=== PATIENT | male | born 1955 | race African-American/Black ===

== ENCOUNTER 2020-11-01 10:40 | Emergency (ER) | payer OTHER ==
[2020-11-01 11:03] VITALS: BMI 27.1
[2020-11-01] MEDS ORDERED: LORazepam 2 MG/ML SDV VIAL IVPUSH ONE (11:33)
[2020-11-01 11:42] LABS: BASO % 0.2 % (0-2.0); HEMATOCRIT 41.4 % (35.4-49); HEMOGLOBIN 13.7 GM/dL (11.7-16.9); LYMPH % 5.1 % (8-40); MCH 33.9 pg (25.7-33.7); MCHC 33.1 g/dl (32.0-35.9); MEAN CELL VOLUME 102.4 fl (80-96); MEAN PLT VOLUME 8.1 fl (7.5-11.1); MONO % 2.3 % (3.8-10.2); NEUT % 92.4 % (42.8-82.8); PLATELET COUNT 244 K/MM3 (134-434); RBC 4.04 M/mm3 (4.00-5.60); RDW 13.3 % (11.9-15.9)
[2020-11-01] MEDS ORDERED: LORazepam 2 MG/ML SDV VIAL ONE (11:42)
[2020-11-01 11:49] LABS: INR 1.02 (0.83-1.09); PROTHROMBIN TIME (PATIENT) 12.3 SEC (9.7-13.0)
[2020-11-01 11:58] LABS: CHLORIDE 106 mmol/L (98-107); POTASSIUM 3.1 mmol/L (3.5-5.1); SODIUM 140 mmol/L (136-145)
[2020-11-01 12:00] LABS: CALCIUM 8.9 mg/dL (8.5-10.1)
[2020-11-01 12:01] LABS: ALBUMIN 4.5 g/dl (3.4-5.0); ANION GAP 9 MMOL/L (8-16); BLOOD UREA NITROGEN 19.5 mg/dL (7-18); CO2 26 mmol/L (21-32); GLUCOSE,RANDOM 135 mg/dL (74-106); MAGNESIUM 1.9 mg/dL (1.8-2.4)
[2020-11-01 12:04] LABS: CREATININE 2.1 mg/dL (0.55-1.3); SGOT/AST 24 U/L (15-37); SGPT/ALT 21 U/L (13-61)
[2020-11-01 12:05] LABS: BILIRUBIN,TOTAL 0.9 mg/dL (0.2-1)
[2020-11-01 12:06] LABS: TOT PROT 8.1 g/dl (6.4-8.2)
[2020-11-01 12:07] LABS: ALK PHOS 131 U/L (45-117)
[2020-11-01 12:10] LABS: N-TERMINAL BNP 3607.6 pg/ml (5-125)
[2020-11-01 12:26] LABS: EPI CELLS 5 /uL (0-25.1); HYALINE CASTS 0 /uL (0-3.1); PH,URINE 6.5 (5.0-8.0); URINE APPEARANCE CLEAR; URINE BACTERIA 128 /uL (0-1359); URINE BILIRUBIN NEGATIVE (NEGATIVE); URINE COLOR YELLOW; URINE GLUCOSE (UA) TRACE (NEGATIVE); URINE KETONE NEGATIVE (NEGATIVE); URINE LEUK ESTERASE NEGATIVE (NEGATIVE); URINE NITRITE NEGATIVE (NEGATIVE); URINE PROTEIN 2+ (NEGATIVE); URINE RBC 48 /uL (0-23.9); URINE UROBILINOGEN 0.2 mg/dL (0.2-1.0); URINE WBC 6 /uL (0-25.8)
[2020-11-01] MEDS ORDERED: NICARDIPINE 25 MG in DEXTROSE 5%-WATER - 240 ML IVPB SCH (12:30)
[2020-11-01 12:33] LABS: OPIATES, URI NEGATIVE ng/ml (CUTOFF=300); PHENCYCLIDINE,URINE NEGATIVE ng/ml (CUTOFF=25)
[2020-11-01 12:34] LABS: COCAINE, UR NEGATIVE ng/ml (CUTOFF=300); METHADONE, UR NEGATIVE ng/ml (CUTOFF=300); URINE BARBITURATES NEGATIVE ng/ml (CUTOFF=200)
[2020-11-01 12:40] LABS: URINE AMPHETAMINES NEGATIVE ng/ml (CUTOFF=500); URINE BENZODIAZEPINES NEGATIVE ng/ml (CUTOFF=200)
[2020-11-01] MEDS ORDERED: niCARdipine HCL 25 MG/10 ML AMPUL IVPB ONE ×2 (12:42→15:08)
[2020-11-01 12:52] LABS: ANISOCYTOSIS 1+; MACROCYTOSIS 0; OVALOCYTE 1+; PLATELET ESTIMATE NORMAL; TEAR DROP CELLS 1+
[2020-11-01 12:55] LABS: VENOUS BASE EXCESS -3.9 mmol/L (-2-2); VENOUS O2 SATURATION 90.1 % (70-80); VENOUS PCO2 32.3 mmHg (38-52); VENOUS PH 7.404 (7.310-7.410)
[2020-11-01] MEDS ORDERED: HUM PROTHROMBIN CPLX(PCC)4FACT 2,000 UNIT/74.7 ML VIAL IVPB ONE (13:00)
[2020-11-01 13:31] VITALS: BP 187/102; PULSE 82
[2020-11-01 17:02] VITALS: TEMP 98.1
== END 2020-11-01 15:15 | disposition short-term general hospital (02) ==
LOC: JER 10:40
PROC: 3E033GC Introduction of Other Therapeutic Substance into Peripheral Vein, Percutaneous Approach (ICD-10-PCS; principal; 2020-11-01)
DX: I63.9 Cerebral infarction, unspecified (principal)
CPT/HCPCS: 36415; 70450-TC; 71045-TC-FY; 72125-TC; 80053; 80307; 81003; 82550; 82553; 82803; 82962; 83735; 83880; 84443; 84484; 85025; 85610; 85730; 87086; 93005; 93010; 99291; 99292; C9803; U0003

== ENCOUNTER 2021-02-06 13:46 | Observation (INO) | payer OTHER ==
[2021-02-06] MEDS ORDERED: levETIRAcetam 500 MG/5 ML INJECTION VIAL IVPB ONE ×2 (14:58→15:01)
[2021-02-06] MEDS ORDERED: amLODIPine BESYLATE 10 MG TABLET (FP) PO ONE (15:12)
[2021-02-06] MEDS ORDERED: hydrALAZINE HCL 50 MG TABLET (FP) PO ONE (15:13)
[2021-02-06 15:17] LABS: BASO % 0.6 % (0-2.0); EOS % 2.2 % (0-4.5); HEMATOCRIT 39.2 % (35.4-49); HEMOGLOBIN 13.1 GM/dL (11.7-16.9); LYMPH % 11.8 % (8-40); MCH 33.2 pg (25.7-33.7); MCHC 33.4 g/dl (32.0-35.9); MEAN CELL VOLUME 99.2 fl (80-96); MEAN PLT VOLUME 7.2 fl (7.5-11.1); MONO % 9.8 % (3.8-10.2); NEUT % 75.6 % (42.8-82.8); PLATELET COUNT 260 K/MM3 (134-434); RBC 3.95 M/mm3 (4.00-5.60); RDW 14.4 % (11.9-15.9); WHITE BLOOD COUNT 6.5 K/mm3 (4.0-10.0)
[2021-02-06 15:24] LABS: EPI CELLS 3 /uL (0-25.1); HYALINE CASTS 0 /uL (0-3.1); PH,URINE 6.5 (5.0-8.0); URINE APPEARANCE CLEAR; URINE BACTERIA 673 /uL (0-1359); URINE BILIRUBIN NEGATIVE (NEGATIVE); URINE COLOR YELLOW; URINE GLUCOSE (UA) NEGATIVE (NEGATIVE); URINE KETONE NEGATIVE (NEGATIVE); URINE LEUK ESTERASE NEGATIVE (NEGATIVE); URINE NITRITE NEGATIVE (NEGATIVE); URINE PROTEIN 1+ (NEGATIVE); URINE RBC 12 /uL (0-23.9); URINE WBC 6 /uL (0-25.8)
[2021-02-06] MEDS ORDERED: amLODIPine BESYLATE 5 MG TABLET (FP) ONE (15:28)
[2021-02-06] MEDS ORDERED: hydrALAZINE HCL 25 MG TABLET (FP) ONE (15:29)
[2021-02-06 15:48] LABS: INR 0.9 (0.83-1.09); POTASSIUM 3.3 mmol/L (3.5-5.1); PROTHROMBIN TIME (PATIENT) 11.1 SEC (9.7-13.0)
[2021-02-06 15:50] LABS: BLOOD UREA NITROGEN 16.9 mg/dL (7-18); CALCIUM 9.4 mg/dL (8.5-10.1)
[2021-02-06 15:51] LABS: ACTIVATED PTT 28.4 SECONDS (25.2-36.5)
[2021-02-06 15:54] LABS: CREATININE 2.2 mg/dL (0.55-1.3)
[2021-02-06 15:55] LABS: BILIRUBIN,TOTAL 0.5 mg/dL (0.2-1); TOT PROT 7.3 g/dl (6.4-8.2)
[2021-02-06] MEDS ORDERED: DEXTROSE 5%-NORMAL SALINE 1,000 ML IV SCH (17:45)
[2021-02-06] MEDS ORDERED: POTASSIUM CHLORIDE 20 MEQ PREMIX IVPB 100 ML IVPB ONE (17:47)
[2021-02-06] MEDS ORDERED: ALBUTEROL SO4 HFA INHALER IH PRN (17:52)
[2021-02-06] MEDS ORDERED: KCL 10 MEQ IVPB 20 MEQ/200 ML INFUS.BAG IVPB ONE (18:29)
[2021-02-06] MEDS: KCL 10 MEQ IVPB 10 MEQ/100 ML INFUS.BAG IVPB SCH ×2 (18:40→19:40)
[2021-02-06] MEDS ORDERED: GABAPENTIN 300 MG CAPSULE PO SCH (22:00)
[2021-02-06] MEDS: hydrALAZINE HCL 50 MG TABLET (FP) PO SCH (22:25)
[2021-02-06 23:20] VITALS: BMI 26.4
[2021-02-07] MEDS: hydrALAZINE HCL 50 MG TABLET (FP) PO SCH ×3 (06:39→21:05)
[2021-02-07 07:31] LABS: BASO % 0.8 % (0-2.0); EOS % 1.6 % (0-4.5); HEMATOCRIT 38.3 % (35.4-49); HEMOGLOBIN 12.9 GM/dL (11.7-16.9); LYMPH % 22.9 % (8-40); MCH 33.3 pg (25.7-33.7); MCHC 33.6 g/dl (32.0-35.9); MEAN CELL VOLUME 99.2 fl (80-96); MEAN PLT VOLUME 7.2 fl (7.5-11.1); MONO % 11.4 % (3.8-10.2); NEUT % 63.3 % (42.8-82.8); PLATELET COUNT 251 K/MM3 (134-434); RBC 3.86 M/mm3 (4.00-5.60); RDW 14.4 % (11.9-15.9); WHITE BLOOD COUNT 5.7 K/mm3 (4.0-10.0)
[2021-02-07 07:50] LABS: POTASSIUM 3.1 mmol/L (3.5-5.1)
[2021-02-07 07:56] LABS: CALCIUM 9.4 mg/dL (8.5-10.1)
[2021-02-07 07:57] LABS: ALBUMIN 3.6 g/dl (3.4-5.0); BLOOD UREA NITROGEN 15.8 mg/dL (7-18); MAGNESIUM 2.5 mg/dL (1.8-2.4)
[2021-02-07 08:00] LABS: CREATININE 2.1 mg/dL (0.55-1.3); PHOSPHOROUS 3.1 mg/dL (2.5-4.9)
[2021-02-07 08:01] LABS: BILIRUBIN,TOTAL 0.7 mg/dL (0.2-1); TOT PROT 6.5 g/dl (6.4-8.2)
[2021-02-07] MEDS ORDERED: ALBUTEROL SO4 HFA INHALER IH PRN (08:45)
[2021-02-07] MEDS ORDERED: amLODIPine BESYLATE 10 MG TABLET (FP) PO SCH (10:00)
[2021-02-07] MEDS ORDERED: WATER IVPB SCH ×2 (10:00)
[2021-02-07] MEDS ORDERED: ISOSORBIDE MONONITRATE 60 MG TAB.SR.24H (FP) PO SCH (10:00)
[2021-02-07] MEDS ORDERED: DEXTROSE 5% IVPB SCH ×2 (10:00)
[2021-02-07] MEDS ORDERED: CLOPIDOGREL BISULFATE 75 MG TABLET (FP) PO SCH (10:00)
[2021-02-07] MEDS ORDERED: CARVEDILOL 25 MG TABLET (FP) PO SCH (10:00)
[2021-02-07] MEDS ORDERED: BUDESONIDE/FORMETEROL FUMARATE 160/4.5 mcg INHALER IH SCH (10:00)
[2021-02-07] MEDS ORDERED: levETIRAcetam 500 MG/5 ML INJECTION VIAL IVPB SCH (10:00)
[2021-02-07] MEDS ORDERED: LEVETIRACETAM IVPB SCH ×2 (10:00)
[2021-02-07] MEDS: levETIRAcetam 500 MG/5 ML INJECTION VIAL IVPB SCH ×2 (10:03→21:05)
[2021-02-07] MEDS: amLODIPine BESYLATE 10 MG TABLET (FP) PO SCH (10:05)
[2021-02-07] MEDS: KCL 10 MEQ IVPB 10 MEQ/100 ML INFUS.BAG IVPB SCH ×2 (10:05→14:30)
[2021-02-07] MEDS: CLOPIDOGREL BISULFATE 75 MG TABLET (FP) PO SCH (10:05)
[2021-02-07] MEDS: GABAPENTIN 300 MG CAPSULE PO SCH ×2 (10:05→21:05)
[2021-02-07] MEDS: ISOSORBIDE MONONITRATE 60 MG TAB.SR.24H (FP) PO SCH (10:05)
[2021-02-07] MEDS: CARVEDILOL 25 MG TABLET (FP) PO SCH (10:05)
[2021-02-07] MEDS: DEXTROSE 5%-NORMAL SALINE 1,000 ML IV SCH ×2 (10:06→23:25)
[2021-02-07] MEDS ORDERED: POTASSIUM CHLORIDE TABS 20 MEQ TABLET.ER (FP) PO ONE (12:16)
[2021-02-07] MEDS: BUDESONIDE/FORMETEROL FUMARATE 160/4.5 mcg INHALER IH SCH (14:30)
[2021-02-07] MEDS: HEPARIN NA (PORCINE) 5,000 UNITS/ML 1ML VIAL SQ SCH ×2 (14:32→21:05)
[2021-02-08] MEDS: HEPARIN NA (PORCINE) 5,000 UNITS/ML 1ML VIAL SQ SCH ×2 (05:25→14:06)
[2021-02-08] MEDS: hydrALAZINE HCL 50 MG TABLET (FP) PO SCH ×2 (05:38→14:06)
[2021-02-08 06:19] LABS: COCAINE, UR NEGATIVE ng/ml (CUTOFF=300); METHADONE, UR NEGATIVE ng/ml (CUTOFF=300); OPIATES, URI POSITIVE ng/ml (CUTOFF=300); PHENCYCLIDINE,URINE NEGATIVE ng/ml (CUTOFF=25); URINE AMPHETAMINES NEGATIVE ng/ml (CUTOFF=500); URINE BARBITURATES NEGATIVE ng/ml (CUTOFF=200); URINE BENZODIAZEPINES NEGATIVE ng/ml (CUTOFF=200)
[2021-02-08 09:50] LABS: POTASSIUM 3.2 mmol/L (3.5-5.1)
[2021-02-08 10:15] LABS: BLOOD UREA NITROGEN 16.1 mg/dL (7-18); CALCIUM 9.3 mg/dL (8.5-10.1)
[2021-02-08 10:16] LABS: MAGNESIUM 2.3 mg/dL (1.8-2.4)
[2021-02-08 10:19] LABS: CREATININE 2.5 mg/dL (0.55-1.3); PHOSPHOROUS 2.9 mg/dL (2.5-4.9)
[2021-02-08] MEDS ORDERED: PT OWN MED DRAWER 7, Y5N ONE (10:53)
[2021-02-08] MEDS: ISOSORBIDE MONONITRATE 60 MG TAB.SR.24H (FP) PO SCH (11:17)
[2021-02-08] MEDS: GABAPENTIN 300 MG CAPSULE PO SCH (11:17)
[2021-02-08] MEDS: CLOPIDOGREL BISULFATE 75 MG TABLET (FP) PO SCH (11:17)
[2021-02-08] MEDS: DEXTROSE 5%-NORMAL SALINE 1,000 ML IV SCH (11:18)
[2021-02-08] MEDS: amLODIPine BESYLATE 10 MG TABLET (FP) PO SCH (11:18)
[2021-02-08] MEDS: CARVEDILOL 25 MG TABLET (FP) PO SCH (11:18)
[2021-02-08] MEDS: BUDESONIDE/FORMETEROL FUMARATE 160/4.5 mcg INHALER IH SCH (11:19)
[2021-02-08] MEDS: levETIRAcetam 500 MG/5 ML INJECTION VIAL IVPB SCH (11:19)
[2021-02-08] MEDS ORDERED: POTASSIUM CHLORIDE TABS 20 MEQ TABLET.ER (FP) PO ONE (13:48)
[2021-02-08 17:43] VITALS: BP 117/55; PULSE 76; TEMP 98.6
== END 2021-02-08 19:48 | disposition home or self-care (01) ==
LOC: JER 13:46 → INTOOBSV 16:50 → JERBED 16:50 → UNDOADMOB 16:50 → JERBED 17:44 → J8W 21:29
PROVIDERS: ADMIT Internal Medicine; ATTEND Internal Medicine
PROC: 3E023GC Introduction of Other Therapeutic Substance into Muscle, Percutaneous Approach (ICD-10-PCS; principal; 2021-02-06)
PROC: 3E033GC Introduction of Other Therapeutic Substance into Peripheral Vein, Percutaneous Approach (ICD-10-PCS; 2021-02-06)
PROC: 3E033GC Introduction of Other Therapeutic Substance into Peripheral Vein, Percutaneous Approach (ICD-10-PCS; 2021-02-06)
DX: I11.9 Hypertensive heart disease without heart failure (principal); I25.10 Atherosclerotic heart disease of native coronary artery without angina pectoris; E87.6 Hypokalemia; I16.0 Hypertensive urgency; M25.552 Pain in left hip; E86.0 Dehydration; Z29.9 Encounter for prophylactic measures, unspecified; Z85.038 Personal history of other malignant neoplasm of large intestine; Z86.73 Personal history of transient ischemic attack (TIA), and cerebral infarction without residual deficits
CPT/HCPCS: 36415; 70260-TC-FY; 70450-TC; 70551-TC; 71045-TC-FY; 73523-TC-FY; 80048; 80053; 80061; 80307; 81003; 82550; 82962; 83721; 83735; 84100; 84443; 84484; 85025; 85610; 85730; 86850; 86900; 86901; 93005; 93010; 96365; 96372; 96375; 96376; 97116-GP; 97161-GP; 99285-25; C9803; G0378; J1644; U0003; U0005